=== PATIENT | female | born 1975 | race Caucasian/White ===

== ENCOUNTER 2017-09-08 15:41 | Emergency (ER) | payer OTHER ==
[~2017-09-08] VITALS: Ht 160 cm; Wt 113.6 kg
[2017-09-08 16:12] VITALS: BP 150/67
[2017-09-08] MEDS ORDERED: KETOROLAC TROMETHAMINE 60 MG/2 ML VIAL IM ONE (16:30)
== END 2017-09-08 18:05 | disposition home or self-care (01) ==
LOC: EMS 15:43
DX: S73.101A Unspecified sprain of right hip, initial encounter (principal); X58.XXXA Exposure to other specified factors, initial encounter; Y93.89 Activity, other specified; Y92.89 Other specified places as the place of occurrence of the external cause; Y99.8 Other external cause status
CPT/HCPCS: 73502; 96372; 99284; J1885

== ENCOUNTER 2017-10-02 03:25 | Emergency (ER) | payer OTHER ==
[~2017-10-02] VITALS: Ht 160 cm; Wt 109.0 kg
[2017-10-02 05:31] LABS: APPEARANCE,URINE CLOUDY (CLEAR); BILIRUBIN,URINE NEGATIVE (NEGATIVE); GLUCOSE, URINE (UA) NEGATIVE (NEGATIVE); KETONES,URINE NEGATIVE (NEGATIVE); LEUKOCYTE ESTERASE ,URINE MODERATE (NEGATIVE); NITRATE,URINE NEGATIVE (NEGATIVE); OCCULT BLOOD,URINE MODERATE (NEGATIVE); PH,URINE 6.5 (5.0-8.0); PROTEIN,URINE POS 1+ (NEGATIVE); UROBILINOGEN,URINE 0.2 mg/dL (<=1.0)
[2017-10-02 05:35] LABS: HCG,QUAL RESULT NEGATIVE (NEGATIVE)
[2017-10-02 06:03] VITALS: BP 147/68
[2017-10-02 06:04] LABS: BACTERIA,URINE Few /HPF (None Seen); SQUAMOUS EPITHELIAL CELL,UR Few /LPF (None Seen); YEAST,URINE Rare /HPF (None Seen)
== END 2017-10-02 06:05 | disposition home or self-care (01) ==
LOC: EMS 03:25
DX: N39.0 Urinary tract infection, site not specified (principal)
CPT/HCPCS: 87086; 99284